=== PATIENT | female | born 1950 | race American Indian/Alaskan Native ===

== ENCOUNTER 2017-03-17 11:29 | Emergency (ER) | payer BC ==
[2017-03-17 11:44] VITALS: RESP 16
[2017-03-17 11:55] VITALS: TEMP 98.3
--- NOTE | 2017-03-17 12:14 | C.PDOC ---
History Of Present Illness Nemo Mercado is a 66 year old female, with a past medical history of HTN, and borderline diabetes as per patient, who presents to the emergency department complaining of a headache associated with blurry vision onset for x3 days. Patient states the pain radiates from the top of the head to the nose, and it comes and goes in waves. She reports having high blood pressure this morning. She denies taking any medication for the headache but did take Clonidine 0.1mg this morning. She denies any chest pain, neck pain, shortness of breath, abdominal pain, nausea or vomit. No further medical complaints. PMD: Abdiaziz Macedo Time Seen by Provider: 03/17/17 11:58 Chief Complaint (Nursing): Headache History Per: Patient History/Exam Limitations: no limitations Onset/Duration Of Symptoms: Days (x3) Current Symptoms Are (Timing): Still Present Pain Scale Rating Of: 8 Preceeding Symptoms: None Associated Symptoms: Blurred Vision. 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 Eyes: Positive for: Vision Change (blurry vision) Cardiovascular: Negative for: Chest Pain Respiratory: Negative for: Shortness of Breath Gastrointestinal: Negative for: Nausea, Vomiting, Abdominal Pain Musculoskeletal: Negative for: Neck Pain Neurological: Positive for: Headache (radiates from top of the head to nose) Physical Exam - Physical Exam Appears: No Acute Distress Skin: Normal Color, Warm, Dry Head: Atraumatic, Normacephalic Eye(s): bilateral: Normal Inspection, PERRL, EOMI Ear(s): Bilateral: Normal Nose: Normal Throat: Normal Neck: Normal ROM, Supple Cardiovascular: Rhythm Regular Respiratory: Normal Breath Sounds, No Accessory Muscle Use Gastrointestinal/Abdominal: Normal Exam, Soft, No Tenderness, No Guarding, No Rebound Extremity: Normal ROM, No Pedal Edema, No Deformity, No Swelling Extremity: Bilateral: Atraumatic Neurological/Psych: Oriented x3, Normal Speech ED Course And Treatment ECG: Interpreted By Me, Viewed By Me ECG Rhythm: Sinus Bradycardia (with 1st degree AV block) Rate From EC (BPM) O2 Sat by Pulse Oximetry: 95 (RA) Pulse Ox Interpretation: Normal Medical Decision Making Medical Decision Making: Initial Impression: 66 y/o female with headache Initial Plan: --Motrin Tab 600 mg PO --Tylenol 975 mg PO --reevaluation BP controlled, head ache resolved Disposition - Disposition Referrals: Abdiaziz Macedo MD, PhD [Staff Provider] - Disposition: HOME/ ROUTINE Disposition Time: 14:58 Condition: IMPROVED Additional Instructions: Follow up with your doctor. Instructions: Hypertension (ED) Forms: [facility] (M[place]ovan), General Discharge Instructions - POA Present On Arrival: None - Clinical Impression Clinical Impression: Headache, Hypertension - Scribe Statement Chase Dunlap Provider Attestation: All medical record entries made by the Scribe were at my direction and personally dictated by me. I have reviewed the chart and agree that the record accurately reflects my personal performance of the history, physical exam, medical decision making, and the department course for this patient. I have also personally directed, reviewed, and agree with the discharge instructions and disposition.
[2017-03-17 13:08] VITALS: PULSE 54
[2017-03-17 14:22] VITALS: O2SAT 95
[2017-03-17 15:28] VITALS: BP 145/63
--- NOTE | 2017-03-17 20:46 | CARD ---
APPROVED REPORT EKG Measurement Heart [id number] <Conclusion> Sinus bradycardia with 1st degree AV block Nonspecific ST and T wave abnormality Abnormal ECG
== END 2017-03-17 15:27 | disposition home or self-care (01) ==
LOC: C.ER 11:29
DX: R51 Headache (principal); I10 Essential (primary) hypertension; E11.9 Type 2 diabetes mellitus without complications